=== PATIENT | female | born 1990 | race Caucasian/White ===

== ENCOUNTER → 2019-05-16 16:42 | Observation (INO) ==
[2019-05-16 15:53] LABS: Bilirubin,Urine Negative (Negative); Blood,Urine Negative (Negative); Clarity,Urine Clear (Clear); Color,Urine Yellow (Yellow); Glucose,Urine (UA) Normal (Normal); Ketones,Urine Negative (Negative); Leukocyte Esterase,Urine Trace (Negative); Nitrite,Urine Negative (Negative); Protein,Urine Negative (Neg-Trace); Urobilinogen,Urine Normal (Normal)
[2019-05-16 15:54] LABS: Basophils % 0.2 %; Eosinophils # 0.1 K/mcL (0.0-0.6); Eosinophils % 0.6 %; Hematocrit 34.2 % (35.3-44.9); Hemoglobin 11.3 g/dL (11.5-15.4); Immature Granulocytes % 0.6 % (0-4); Lymphocytes # 1.9 K/mcL (0.6-4.6); Lymphocytes % 15.4 %; Mean Corpuscular Hemoglobin 28.9 pg (28.0-33.3); Mean Corpuscular Volume 87.5 fL (83.0-100.0); Mean Platelet Volume 10.6 fL (9.4-12.4); Monocytes # 0.8 K/mcL (0.0-1.3); Monocytes % 6.4 %; Neutrophils # 9.2 K/mcL (1.6-8.9); Platelet Count 328 K/mcL (140-400); Red Blood Count 3.91 M/mcL (3.82-4.97); Red Cell Distribution Width 13.5 % (11.5-14.5); Segmented Neutrophils % 76.8 %
[2019-05-16 15:56] LABS: Bacteria,Urine None Seen per hpf (None-Few); Hyaline Casts,Urine None Seen per lpf (None-Few); RBC,Urine 0-3 per hpf (0-3); Squamous Epithelial Cell,Urine Many per lpf (None-Few)
[2019-05-16 16:06] LABS: Creatinine,Urine 24 mg/dL
[2019-05-16 16:14] LABS: Alanine Aminotransferase 16 Units/L (7-52); Aspartate Amino Transferase 12 Units/L (13-39); BUN/Creatinine Ratio 14 (6-26); Blood Urea Nitrogen 9 mg/dL (6-20); Lactate Dehydrogenase 127 Units/L (140-271); Uric Acid 2.6 mg/dL (2.3-7.6); eGFR For African Americans > 60 (> 60); eGFR For Non-African Americans > 60 (> 60)
== END | disposition home or self-care (01) ==
LOC: 1NENULAB
PROVIDERS: ADMIT Advanced Practice Midwife; ATTEND Advanced Practice Midwife

== ENCOUNTER 2019-05-17 02:12 | Observation (INO) ==
[~2019-05-17 02:12] MED LIST: Ringers Solution, Lactated 1,000 ML IVC SCH; Ringers Solution, Lactated 1,000 ML ONE
[2019-05-17] MEDS: *HR* OxyCODONE Immed Rel 5 MG TABLET PO PRN ×2 (03:07→10:25)
[2019-05-17] MEDS: Ondansetron 4 MG/2 ML VIAL IVP PRN ×2 (03:08→09:35)
[2019-05-17 03:56] LABS: Bilirubin,Urine Negative (Negative); Blood,Urine Negative (Negative); Clarity,Urine Clear (Clear); Color,Urine Yellow (Yellow); Glucose,Urine (UA) 100 mg/dL (Normal); Ketones,Urine 15 mg/dL (Negative); Leukocyte Esterase,Urine Negative (Negative); Nitrite,Urine Negative (Negative); PH,Urine 6.5 pH Units (5.0-8.0); Protein,Urine Negative (Neg-Trace); Specific Gravity,Urine 1.022 (1.010-1.025); Urobilinogen,Urine Normal (Normal)
[2019-05-17] MEDS ORDERED: *HR* OxyCODONE/APAP 5/325 TABLET PO ONE (04:35)
[2019-05-17] MEDS: Nitrofurantoin (BID) 100 MG CAPSULE PO SCH ×2 (11:18→17:02)
[2019-05-17] MEDS: Ringers Solution, Lactated 1,000 ML IVC SCH (13:07)
[2019-05-18] MEDS: Ringers Solution, Lactated 1,000 ML IVC SCH (04:49)
[2019-05-18 08:10] VITALS: BP 120/66
[2019-05-18] MEDS: Nitrofurantoin (BID) 100 MG CAPSULE PO SCH (09:41)
== END 2019-05-18 11:37 | disposition home or self-care (01) ==
LOC: 1NENULAB → 1NENUOBS 02:12
PROVIDERS: ADMIT Advanced Practice Midwife; ATTEND Advanced Practice Midwife

== ENCOUNTER 2019-08-12 23:54 | Inpatient (IN) ==
[2019-08-13] MEDS ORDERED: Lidocaine 1% 20 ML MDV INFILT PRN (00:11)
[2019-08-13] MEDS ORDERED: *HR* FentaNYL (PF) 100 MCG/2 ML VIAL IVP PRN (00:11)
[2019-08-13] MEDS ORDERED: Ondansetron 4 MG/2 ML VIAL IVP PRN ×2 (00:11→09:43)
[2019-08-13] MEDS ORDERED: Naloxone 0.4 MG/ML INJ IVP PRN ×2 (00:11→09:43)
[2019-08-13] MEDS ORDERED: miSOPROStoL 25 MCG TABLET PO PRN (00:11)
[2019-08-13] MEDS ORDERED: Metoclopramide 10 MG/2 ML VIAL IVP PRN (00:11)
[2019-08-13] MEDS ORDERED: Famotidine 20 MG/2 ML VIAL IVP PRN (00:11)
[2019-08-13] MEDS ORDERED: Ringers Solution, Lactated 1,000 ML IVC SCH (00:15)
[2019-08-13 00:46] LABS: Basophils % 0.2 %; Eosinophils # 0.1 K/mcL (0.0-0.6); Hematocrit 34.3 % (35.3-44.9); Hemoglobin 11.3 g/dL (11.5-15.4); Immature Granulocytes % 0.4 % (0-4); Lymphocytes # 2.3 K/mcL (0.6-4.6); Mean Corpuscular HGB Conc 32.9 g/dL (31.6-35.5); Mean Corpuscular Hemoglobin 27.8 pg (28.0-33.3); Mean Corpuscular Volume 84.3 fL (83.0-100.0); Mean Platelet Volume 11.2 fL (9.4-12.4); Monocytes # 0.9 K/mcL (0.0-1.3); Monocytes % 7.7 %; Neutrophils # 8.7 K/mcL (1.6-8.9); Platelet Count 307 K/mcL (140-400); Red Blood Count 4.07 M/mcL (3.82-4.97); Red Cell Distribution Width 13.2 % (11.5-14.5); Segmented Neutrophils % 71.7 %; White Blood Count 12.1 K/mcL (4.3-11.1)
[2019-08-13 00:55] LABS: Amphetamine Screen,Urine Negative ng/mL (Cutoff=1000); Barbiturate Screen,Urine Negative ng/mL (Cutoff=200); Benzodiazepines Screen,Urine Negative ng/mL (Cutoff=200); Cannabinoid Screen,Urine Negative ng/mL (Cutoff = 50); Cocaine Screen,Urine Negative ng/mL (Cutoff= 300); Opiate Screen,Urine Negative ng/mL (Cutoff=300); Phencyclidine Screen,Urine Negative ng/mL (Cutoff=25)
[2019-08-13] MEDS: Oxytocin 20 units/ LR 1000 mL 20 UNIT/1,000 ML BAG IVC SCH ×2 (05:52→19:06)
[2019-08-13] MEDS ORDERED: Ropivacaine/PF 0.2% 20 ML VIAL EP ONE (09:43)
[2019-08-13] MEDS ORDERED: *HR* FentaNYL (PF) 100 MCG/2 ML VIAL EP ONE (09:43)
[2019-08-13] MEDS ORDERED: EPHEDrine 50 MG/ML VIAL IVP PRN (09:43)
[2019-08-13] MEDS ORDERED: Epidural Premix (fent/bupiv) 110 ML EP SCH (09:45)
[2019-08-13] MEDS ORDERED: Epidural Premix (fent/bupiv) 110 ML EP ONE (09:49)
[2019-08-13] MEDS ORDERED: Ropivacaine/PF 0.2% 20 ML VIAL ONE (09:55)
[2019-08-13] MEDS ORDERED: Ibuprofen 600 MG TABLET PO PRN ×2 (22:32)
[2019-08-13] MEDS ORDERED: Oxytocin 20 units/ LR 1000 mL 20 UNIT/1,000 ML BAG IVC ONE ×2 (22:32)
[2019-08-13] MEDS ORDERED: Acetaminophen 325 MG TABLET PO PRN ×2 (22:32)
[2019-08-13] MEDS ORDERED: Lanolin 7 G OINT...G. TP PRN ×2 (22:32)
[2019-08-13] MEDS ORDERED: Measles/Mumps/Rubella Vacc 0.5 ML VIAL SQ PRN ×2 (22:32)
[2019-08-13] MEDS ORDERED: Oxytocin 20 units/ LR 1000 mL 20 UNIT/1,000 ML BAG IVC SCH ×2 (22:32)
[2019-08-13] MEDS ORDERED: Sennosides 8.6 MG TABLET PO PRN ×2 (22:32)
[2019-08-13] MEDS ORDERED: Benzocaine/Menthol 56 GM AEROSOL SPRAY TP PRN (22:32)
[2019-08-13] MEDS ORDERED: Rho Immune Globulin 1,500 UNIT SYRINGE IM PRN ×2 (22:32)
[2019-08-13] MEDS: Doxycycline 100 MG CAPSULE PO SCH (23:37)
[2019-08-14 05:31] LABS: Basophils % 0.3 %; Eosinophils # 0.1 K/mcL (0.0-0.6); Eosinophils % 0.5 %; Hematocrit 30.2 % (35.3-44.9); Immature Granulocytes % 0.4 % (0-4); Lymphocytes # 2.2 K/mcL (0.6-4.6); Lymphocytes % 15.6 %; Mean Corpuscular HGB Conc 33.1 g/dL (31.6-35.5); Mean Corpuscular Hemoglobin 28.4 pg (28.0-33.3); Mean Corpuscular Volume 85.8 fL (83.0-100.0); Mean Platelet Volume 11.4 fL (9.4-12.4); Monocytes # 1.2 K/mcL (0.0-1.3); Monocytes % 8.5 %; Neutrophils # 10.7 K/mcL (1.6-8.9); Platelet Count 257 K/mcL (140-400); Red Blood Count 3.52 M/mcL (3.82-4.97); Red Cell Distribution Width 13.5 % (11.5-14.5); Segmented Neutrophils % 74.7 %; White Blood Count 14.3 K/mcL (4.3-11.1)
[2019-08-14 08:29] VITALS: BP 115/74
[2019-08-14] MEDS: Doxycycline 100 MG CAPSULE PO SCH (08:48)
[2019-08-14] MEDS ORDERED: Prenatal Vit/FA 1 EACH TABLET PO SCH ×2 (09:00→12:00)
== END 2019-08-14 15:00 | disposition home or self-care (01) | DRG 807 ==
LOC: 1NENULAB 23:54 → 1NENUOBS 08-13 22:17
PROVIDERS: ADMIT Student in an Organized Health Care Education/Training Program; ATTEND Student in an Organized Health Care Education/Training Program

== ENCOUNTER 2019-09-28 04:30 | Observation (INO) ==
[2019-09-28] MEDS ORDERED: Promethazine 12.5 MG in 0.9 % Sodium Chloride 50 ML IVPB ONE (04:36)
[2019-09-28] MEDS ORDERED: *HR* FentaNYL (PF) 100 MCG/2 ML VIAL IVP ONE (04:36)
[2019-09-28] MEDS ORDERED: 0.9 % Sodium Chloride 1,000 ML IVC SCH (07:00)
[2019-09-28] MEDS ORDERED: Ondansetron 4 MG/2 ML VIAL IVP PRN ×2 (07:00→15:06)
[2019-09-28] MEDS ORDERED: Pantoprazole 40 MG VIAL IVP SCH (09:15)
[2019-09-28] MEDS ORDERED: Perflutren Lipid Microsphere 1.3 ML in 0.9 % Sodium Chloride 8.7 ML IVP PRN (09:17)
[2019-09-28] MEDS ORDERED: Piperacillin/Tazobactam 3.375 GM in 0.9 % Sodium Chloride Mini Bag 100 ML IVPB SCH ×2 (09:19→16:00)
[2019-09-28] MEDS ORDERED: Acetaminophen IV 1,000 MG/100 ML INFUS..BTL ONE (12:12)
[2019-09-28] MEDS ORDERED: *HR* Succinylcholine 200 MG/10 ML VIAL IVP ONE (12:45)
[2019-09-28] MEDS ORDERED: *HR* PHENYLEPHRINE 1,000 MCG/10 ML SYRINGE IVP ONE (12:45)
[2019-09-28] MEDS ORDERED: *HR* Propofol 200 MG/20 ML VIAL IVP ONE (12:45)
[2019-09-28] MEDS ORDERED: *HR* Rocuronium Bromide 50 MG/5 ML VIAL ONE (12:45)
[2019-09-28] MEDS ORDERED: Ondansetron 4 MG/2 ML VIAL ONE (12:45)
[2019-09-28] MEDS ORDERED: *HR* Midazolam HCl 2 MG/2 ML VIAL ONE (12:45)
[2019-09-28] MEDS ORDERED: *HR* FentaNYL (PF) 100 MCG/2 ML VIAL ONE (12:45)
[2019-09-28] MEDS ORDERED: Lidocaine -MPF 2% 2 ML VIAL ONE (12:45)
[2019-09-28] MEDS ORDERED: Dexamethasone 4 MG/ML VIAL ONE (12:45)
[2019-09-28] MEDS ORDERED: Lidocaine HCL 4 ML Topical Solution (Laryng-O-Jet Kit Sterile Pak) TP ONE (12:45)
[2019-09-28] MEDS ORDERED: *HR* HYDROMORPHONE 2 MG/ML VIAL ONE (12:46)
[2019-09-28] MEDS ORDERED: *HR* OxyCODONE Immed Rel 5 MG TABLET PO PRN (14:03)
[2019-09-28] MEDS ORDERED: *HR* HYDROmorphone PF 0.5 MG/0.5 ML SYRINGE IVP PRN (14:03)
[2019-09-28] MEDS ORDERED: Ondansetron 4 MG/2 ML VIAL IVP ONE (14:03)
[2019-09-28] MEDS ORDERED: *HR* Promethazine 25 MG/ML VIAL IVP PRN (14:03)
[2019-09-28] MEDS ORDERED: *HR* Meperidine 25 MG/ML SYRINGE IVP PRN (14:03)
[2019-09-28] MEDS ORDERED: *HR* OxyCODONE/APAP 5/325 TABLET PO PRN (15:06)
[2019-09-28] MEDS ORDERED: Ketorolac 15 MG/ML VIAL IVP SCH (18:00)
[2019-09-28 18:40] VITALS: BP 113/73
[2019-09-29] MEDS ORDERED: Pantoprazole 40 MG VIAL IVP SCH (09:00)
== END 2019-09-28 18:52 | disposition home or self-care (01) ==
LOC: 3ANU 04:30 → EMEROOARM 04:30 → 3ANU 05:46
PROVIDERS: ADMIT Surgery; ATTEND Surgery